=== PATIENT | female | born 1955 | race Caucasian/White ===

== ENCOUNTER → 2017-04-26 | Outpatient (CLI) | payer BC, MEDICARE ==
[~2017-04-26] MED LIST: ASPI325T17 PO; BISA10SU2 PR; CALC500T51 PO; CELE100C PO; CHOL400D3 PO; CHOLESTYRAMINE; CIPR500T3 PO; DIAZ5TAB4 PO; DIPH25CA61 PO; DOCU100C33 PO; GABA100C PO; GABA300C10 PO; LEVO75TA5 PO; LORA1TAB PO; MAG355OR15 PO; METH-356 PO; MORP60TA34 PO; MULT-26 PO; ONDA4TAB12 PO; OXYC-302 PO; OXYC-307 PO; SENN1TAB13 PO; TRAM100T2 PO; TRAM50TA2 PO; ZOLP10TA PO; ZOLP10TA5 PO; [UNRECOGNIZED DRUG - CODE] PO; [UNRECOGNIZED DRUG - OTHER] PO
== END | disposition home or self-care (01) ==
LOC: CFH 15:24
PROVIDERS: ATTEND Physician Assistant
DX: R22.42 Localized swelling, mass and lump, left lower limb (principal)

== ENCOUNTER → 2018-01-14 | Outpatient (CLI) | payer BC, MEDICARE ==
[~2018-01-14] MED LIST changes: +ESTR1TAB15 PO; +LEVO50TA5 PO; -TRAM100T2 PO; +TRAM100T33 PO
== END ==
LOC: STAR 08:07
PROVIDERS: ATTEND Orthopaedic Surgery
DX: Z01.818 Encounter for other preprocedural examination (principal); M25.572 Pain in left ankle and joints of left foot; M79.671 Pain in right foot
CPT/HCPCS: 93005

== ENCOUNTER 2018-01-18 08:32 | Day surgery (SDC) | payer BC, MEDICARE ==
[~2018-01-18] VITALS: Ht 167.6 cm; Wt 86.2 kg
[2018-01-18] MEDS ORDERED: LACTATED RINGERS 1,000 ML IV SCH (08:53)
[2018-01-18] MEDS ORDERED: OxyconTIN ER 10 MG TAB.ER PO ONE (09:00)
[2018-01-18] MEDS ORDERED: GABAPENTIN 300 MG CAPSULE PO ONE (09:00)
[2018-01-18] MEDS ORDERED: ONDANSETRON ODT 8 MG PO ONE (09:00)
[2018-01-18] MEDS ORDERED: DIAZEPAM 5 MG TABLET PO ONE (09:00)
[2018-01-18 09:06] VITALS: BP 141/85
[2018-01-18] MEDS ORDERED: FENTANYL PF 100 MCG/2ML ONE (09:39)
[2018-01-18] MEDS ORDERED: MIDAZOLAM 1 MG/ML, 2ML ONE (09:39)
[2018-01-18] MEDS ORDERED: KETOROLAC 30 MG/1 ML ONE (09:54)
[2018-01-18] MEDS ORDERED: PROPOFOL 10 MG/ML, 20ML ONE (10:26)
[2018-01-18] MEDS ORDERED: CEFAZOLIN 1,000 MG ONE (10:26)
[2018-01-18] MEDS ORDERED: DEXAMETHASONE 4 MG/ML, 1ML ONE (10:26)
[2018-01-18] MEDS ORDERED: ONDANSETRON 2MG/ML, 2ML ONE (10:26)
[2018-01-18] MEDS ORDERED: PROMETHAZINE 25 MG/ML, 1ML IV PRN (10:30)
[2018-01-18] MEDS ORDERED: hydrALAzine 20 MG/ML, 1ML IV PRN (10:30)
[2018-01-18] MEDS ORDERED: ALBUTEROL/IPRATROPIUM 2.5MG/0.5MG, 3 ML NPPB PRN (10:30)
[2018-01-18] MEDS ORDERED: EPHEDRINE 50 MG/ML, 1ML IM PRN (10:30)
[2018-01-18] MEDS ORDERED: FENTANYL PF 100 MCG/2ML IV PRN (10:30)
[2018-01-18] MEDS ORDERED: OXYcodone 5 MG/5 ML ORAL.SOL UDC PO PRN (10:30)
[2018-01-18] MEDS ORDERED: BUPIVACAINE/PF 0.25% INFIL ONE (10:30)
[2018-01-18] MEDS ORDERED: MORPHINE SULFATE 4 MG/ML, 1ML IVPush PRN (10:30)
[2018-01-18] MEDS ORDERED: HYDROmorphone 1 MG/ML, 1ML IV PRN (10:30)
[2018-01-18] MEDS ORDERED: LABETALOL 5MG/ML, 20ML IV PRN (10:30)
[2018-01-18] MEDS ORDERED: LORazepam 2 MG/ML, 1ML IVPush PRN (10:30)
[2018-01-18] MEDS ORDERED: DIAZEPAM 5 MG/ML, 2ML IVPush PRN (10:30)
[2018-01-18] MEDS ORDERED: MIDAZOLAM 1 MG/ML, 2ML IV PRN (10:30)
[2018-01-18] MEDS ORDERED: LIDOCAINE 1%, 10ML INFIL ONE (10:30)
[2018-01-18] MEDS ORDERED: MEPERIDINE/PF 25MG/0.5ML ONE (10:49)
[2018-01-18] MEDS: MEPERIDINE/PF 25MG/0.5ML IVPush PRN ×2 (10:50→11:10)
== END 2018-01-18 13:30 ==
LOC: OUT 08:32
PROVIDERS: ATTEND Orthopaedic Surgery
DX: M20.5X1 Other deformities of toe(s) (acquired), right foot (principal); M24.672 Ankylosis, left ankle; M19.072 Primary osteoarthritis, left ankle and foot
CPT/HCPCS: 27635; 28011; 29898; J0690; J1100; J1885; J2175; J2250; J2704; J3010; J3490; J7120; Q0162; J2405